=== PATIENT | female | born 1980 | race Caucasian/White ===

== ENCOUNTER → 2017-10-23 | Outpatient (CLI) | payer OTHER ==
[~2017-10-23] MED LIST: AMITRIPTYLINE H25 M2 PO; MAGNESIUM250 M1 PO; TREXIMET 85-501 EACH PO
== END ==
LOC: CAT 09:01
DX: R10.31 Right lower quadrant pain (principal)

== ENCOUNTER 2018-08-21 16:21 | Inpatient (IN) | payer OTHER ==
[~2018-08-21] VITALS: Ht 152.4 cm; Wt 122.9 kg
--- NOTE | ~2018-08-21 | EKG ---
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 shay : 1980 Requested By: Aarti Hill Order Number: [id number] MD: Joao Wharton Measurements Intervals [place] Rate: 102 P: 41 GA: 147 QRS: -5 QRSD: 80 T: -3 QT: 343 QTc: 447 Interpretive Statements Sinus tachycardia Low voltage, precordial leads Abnormal R-wave progression, early transition Borderline T abnormalities, diffuse leads No previous ECG available for comparison Electronically Signed On 08-22-2018 23:13:13 CDT by Joao Wharton [email or web address] <ELECTRONICALLY SIGNED> By: Joao Wharton MD 08/22/18 2313 24 Joao Wharton MD /EPI
[2018-08-21 16:30] VITALS: BP 116/89
[2018-08-21 17:37] LABS: ABSOLUTE NEUTROPHILS 4.4 thou/uL (1.4-8.2); BASOPHILS 1.2 % (0.0-2.0); EOSINOPHILS 0.7 % (0.0-3.0); HEMATOCRIT 42.1 % (37.0-47.0); HEMOGLOBIN 14.8 gm/dL (12.0-15.0); LYMPHOCYTES 51.8 % (24.0-44.0); MCH 31.9 pg (26.0-34.0); MCHC 35.2 g/dL (28.0-37.0); MCV 90.7 fL (80.0-100.0); MONOCYTES 8.7 % (1.0-8.0); PLATELET COUNT 229 thou/uL (150-400); POLYS 37.6 % (36.0-66.0); RBC 4.64 mil/uL (4.20-5.00); RDW 14.9 % (10.5-14.5); WBC 11.7 thou/uL (4.0-11.0)
[2018-08-21] MEDS ORDERED: TOPAMAX50 MG PO (17:59)
[2018-08-21] MEDS ORDERED: OLMESARTAN-HCT1 EACH PO (17:59)
[2018-08-21] MEDS ORDERED: TERBINAFINE HCL30 GM TOP (18:00)
[2018-08-21 18:02] LABS: ALBUMIN 3.9 g/dL (3.4-5.0); CALCIUM 9.6 mg/dL (8.5-10.1); CREATININE 2.1 mg/dL (0.6-1.0); TOTAL BILIRUBIN 0.9 mg/dL (<0.1-1.0); TOTAL PROTEIN 8.9 g/dL (6.4-8.2)
[2018-08-21 18:10] LABS: POTASSIUM 3.4 mmol/L (3.5-5.1)
[2018-08-21 18:23] LABS: URINE BLOOD NEGATIVE (Negative); URINE CLARITY SL CLOUDY; URINE COLOR YELLOW; URINE GLUCOSE-RANDOM* NEGATIVE (Negative); URINE KETONES TRACE (Negative); URINE LEUKOCYTES-REFLEX NEGATIVE (Negative); URINE NITRITE-REFLEX NEGATIVE (Negative); URINE PROTEIN (DIPSTICK) TRACE (Negative); URINE SPECIFIC GRAVITY >= 1.030 (1.005-1.035); URINE UROBILINOGEN 0.2 E.U./dl (0.2-1.0)
[2018-08-21 18:24] LABS: ICTOTEST (BILI CONFIRMATORY) Negative (Negative); URINE BILIRUBIN NEGATIVE (Negative)
[2018-08-21 20:45] VITALS: BP 154/58
[2018-08-21 21:00] VITALS: BP 154/58
[2018-08-21 21:36] VITALS: BP 142/63
[2018-08-22 06:41] LABS: HEMATOCRIT 37.5 % (37.0-47.0); HEMOGLOBIN 13.2 gm/dL (12.0-15.0); MCH 31.7 pg (26.0-34.0); MCHC 35.1 g/dL (28.0-37.0); MCV 90.2 fL (80.0-100.0); RBC 4.15 mil/uL (4.20-5.00); RDW 14.9 % (10.5-14.5); WBC 9.1 thou/uL (4.0-11.0)
[2018-08-22 06:57] LABS: ALBUMIN 3.2 g/dL (3.4-5.0); ANION GAP 8 mmol/L (7-16); BUN 15 mg/dL (7-18); CALCIUM 8.7 mg/dL (8.5-10.1); CHLORIDE 104 mmol/L (98-107); CHOLESTEROL 148 mg/dL (<200); CO2 23 mmol/L (21-32); CREATININE 1.4 mg/dL (0.6-1.0); GLUCOSE 106 mg/dL (74-106); HDL CHOLESTEROL 26 mg/dL (>40); LDL CHOLESTEROL 72 mg/dL (<100); POTASSIUM 3.7 mmol/L (3.5-5.1); SGOT 215 U/L (15-37); SGPT 168 U/L (30-65); SODIUM 135 mmol/L (136-145); TC:HDL 5.7 Ratio (Not establshd); TOTAL BILIRUBIN 0.8 mg/dL (<0.1-1.0); TOTAL PROTEIN 7.5 g/dL (6.4-8.2); TRIGLYCERIDE 251 mg/dL (<150); VLDL 50 mg/dL (<40)
[2018-08-22 07:15] VITALS: BP 127/69
[2018-08-22 20:04] VITALS: BP 182/95
[2018-08-22 22:10] VITALS: BP 151/81
[2018-08-22 22:20] VITALS: BP 157/97
[2018-08-23 04:47] VITALS: BP 122/61
[2018-08-23 07:12] VITALS: BP 149/71
[2018-08-23 07:16] LABS: ALBUMIN 3.1 g/dL (3.4-5.0); CALCIUM 8.4 mg/dL (8.5-10.1); CREATININE 1.1 mg/dL (0.6-1.0); POTASSIUM 3.5 mmol/L (3.5-5.1); TOTAL BILIRUBIN 0.7 mg/dL (<0.1-1.0); TOTAL PROTEIN 6.9 g/dL (6.4-8.2)
[2018-08-23 10:05] VITALS: BP 149/71
== END 2018-08-23 10:30 | disposition home or self-care (01) | DRG 682 ==
LOC: ER 16:21 → 4E 20:17 → EROBS 20:17 → 4E 21:31
PROVIDERS: Hospitalist; Nurse Practitioner Family; Physician Assistant
DX: N17.9 Acute kidney failure, unspecified (principal); K85.90 Acute pancreatitis without necrosis or infection, unspecified; Z68.43 Body mass index [BMI] 50.0-59.9, adult; A09 Infectious gastroenteritis and colitis, unspecified; K80.80 Other cholelithiasis without obstruction; G43.909 Migraine, unspecified, not intractable, without status migrainosus; R74.0 Nonspecific elevation of levels of transaminase and lactic acid dehydrogenase [LDH]; I10 Essential (primary) hypertension; E66.01 Morbid (severe) obesity due to excess calories; Z90.49 Acquired absence of other specified parts of digestive tract; Z87.442 Personal history of urinary calculi; Z88.8 Allergy status to other drugs, medicaments and biological substances
CPT/HCPCS: 10084

== ENCOUNTER → 2021-12-08 | Outpatient (CLI) | payer BC ==
[~2021-12-08] MED LIST changes: +OLMESARTAN-HCT1 EACH PO; +TERBINAFINE HCL30 GM TOP; +TOPAMAX50 MG PO
== END ==
LOC: ULTRA 08:57
PROVIDERS: ATTEND Nurse Practitioner
DX: M79.604 Pain in right leg (principal)